=== PATIENT | female | born 1960 | race Caucasian/White ===

== ENCOUNTER 2019-07-16 22:15 | Emergency (ER) | payer OTHER, SELFPAY ==
[2019-07-16 22:16] VITALS: BP 143/96; PULSE 110; RESP 15; TEMP 36.8; O2SAT 96; BMI 30.7
--- NOTE | 2019-07-16 22:33 | EKG12_ITS ---
Test Reason : ABDOMINAL PAIN Blood Pressure : / mmHG Vent. Rate : 092 BPM Atrial Rate : 092 BPM P-R Int : 126 ms QRS Dur : 084 ms QT Int : 370 ms P-R-T Axes : 047 040 017 degrees QTc Int : 457 ms Normal sinus rhythm Normal ECG Confirmed by LUIZA CHILDRESS MD ([id number]), medical editor JAE GARCIA ([id number] on 07/22/2019 10:14:18 AM Referred By: DENNISE Confirmed By:LUIZA CHILDRESS MD
--- NOTE | 2019-07-16 22:34 | ED.VIS.GEN ---
History of Present Illness Chief Complaint: Abd Pain Informant: Patient Onset: Today Current Severity: Mild Maximum Severity: Severe Narrative: Patient presents with epigastric abdominal pain, 2 episodes tonight. The first episode occurred around 7 PM and second episode around 8 PM. Symptoms lasted 15 to 30 minutes each and spontaneous resolved. She states she has had similar episodes in the past several years, but never on a regular basis. Tonight was more persistent and stronger pain. She last ate dinner at 6 PM. She did not have anything particular greasy or fatty. She does not know of gallbladder disease. She does report having some heartburn symptoms. Past Medical History - Allergies and Home Meds Allergies/Adverse Reactions: Allergies No Known Allergies Allergy (Verified 07/16/19 22:19) Prior records reviewed: Yes Past Medical History: - - Reviewed Surgical History: appendectomy Lives: With Family Smoking Status: Never smoker Review of Systems General: Denies: Chills, Fever Eyes: Denies: Visual changes - bilaterally ENT: Denies: Bilateral ear pain Cardiovascular: Denies: Chest pain Respiratory: Reports: Dyspnea - When pain gets severe Gastrointestinal: Reports: Abdominal pain, Nausea Musculoskeletal: Denies: Back pain, Extremity Pain Skin: Denies: Rash Neurological: Denies: Headache Hematologic: Denies: Easy bruising, Easy bleeding Allergy: Denies: Uticaria Physical Exam Vital Signs/Narrative: Vital Signs Temp Pulse Resp BP Pulse Ox 07/16/19 22:16 98.2 F 110 H 15 143/96 H 96 Inital Vital Signs reviewed: Yes General: Well nourished, Well developed Head: Normocephalic ENT: Moist mucous membranes Neck: Supple Cardiovascular: Regular rate, Regular rhythm Respiratory: No distress, CTA bilaterally Abdomen: Soft, Nontender, Nondistended Back: Nontender Extremities: Nontender, No edema Skin: Normal color, No rash Neurological: Alert, Oriented x3 Psychological: Normal affect Diagnostic/Tx/Re-eval Impressions Acute Abdomen Series 07/16/19 22:45 IMPRESSION: No acute thoracic or intra-abdominal disease perceived. at 2336 Reported and signed by: River Boone MD Electronically Signed: iRver Boone MD at 23:35 EDT Tel , Service support , 07/16/19 22:45 Acute Abdomen Inc Chest [RAD] Stat Laboratory Results 07/16/19 07/16/19 22:40 22:40 WBC 14.1 H RBC 4.83 Hgb 13.9 Hct 42.4 MCV 87.8 MCH 28.8 MCHC 32.8 RDW Std Deviation 39.2 RDW Coeff of [place] 12.1 Plt Count 359 MPV 9.8 Immature Gran % (Auto) 0.500 Neut % (Auto) 88.6 H Lymph % (Auto) 5.7 L [place] % (Auto) 4.5 Eos % (Auto) 0.3 Baso % (Auto) 0.4 Absolute Neuts (auto) 12.5 H Absolute Lymphs (auto) 0.81 L Nucleated RBC % 0 Sodium 137 Potassium 4.1 Chloride 103 Carbon Dioxide 26.0 Anion Gap 8 BUN 21 H Creatinine 1.14 H Estim Creat Clear Calc 47.22 Est GFR (MDRD) Af Amer 62 Est GFR (MDRD) Non-Af 52 L BUN/Creatinine Ratio 18.4 Glucose 120 H Calcium 9.1 Total Bilirubin 0.50 Direct Bilirubin 0.23 AST 90 H ALT 77 H Alkaline Phosphatase 84 Troponin I < 0.015 Total Protein 8.1 Albumin 3.7 Globulin 4.4 H Lipase 177 - EKG Initial EKG Interpretation: Sinus Rhythm - Sinus at 92 with no acute ischemia. - Medical Decision Making Patient's pain resolved at the time she arrived to the hospital. She had no recurrent episodes of pain here. Test results are discussed with her. Her ALT and AST are elevated, but she has normal bilirubin levels. Her white count is elevated at 14. I did attempt a bedside ultrasound. Anatomy was hard to visualize but do not see anything obvious with the gallbladder. On review of her x-rays she does have quite a bit of stool noted, specifically at the splenic flexure. We will give her Prilosec to cover gastritis as well as MiraLAX to help treat her constipation. I recommended she follow-up with her primary care physician this week. She tells me she does not have a family doctor. Her [employer] is through [facility] and she would prefer to stay with the [facility] system. She will be referred to Dr. Brownlee as well as Dr. Abdul for follow-up. She is nice to return for worsening symptoms, fever, vomiting, etc. ED Disposition - Plan for ED Patient: Disposition: Home or Assisted Living Diagnosis: Epigastric pain Instructions: EPIGASTRIC PAIN (Uncertain cause) Prescriptions: Polyethylene Glycol 3350 [Miralax] 17 gm PO DAILY #20 packet Omeprazole [Prilosec] 20 mg PO DAILY #30 capsule Referrals: Jacob Jerome MD [NON-STAFF] - As soon as possible Cleveland Abdul MD [STAFF PHYSICIAN] - As Needed
[2019-07-16] MEDS: 0.9% Normal Saline 1,000 ML 150 ML IV (22:42)
--- NOTE | 2019-07-16 22:45 | RAD_ITS ---
HISTORY: abdominal pain EXAM: Abdomen acute series with chest. COMPARISON: None FINDINGS: # of images incl. paperwork: 5 Heart silhouette and mediastinal contours are normal. Lungs are clear. No effusions are present. No free air is present under the diaphragm. Dextroscoliosis to the thoracic spine. Levoscoliosis to the lumbar spine. Multilevel degenerative disc disease. This degenerative disc disease is manifested by loss of disc height, endplate sclerosis, and enthesophytes. Osteophytes are present about the acetabular joints consistent with arthritis. Bowel-gas pattern is normal. No organomegaly is present. RAD/Acute Abdomen Inc Chest IMPRESSION: No acute thoracic or intra-abdominal disease perceived. at 2336 Reported and signed by: River Boone MD Electronically Signed: River Boone MD at 23:35 EDT Tel , Service support ,
[2019-07-16 22:49] LABS: Absolute Lymphocyte Count 0.81 X10^3/uL (0.83-4.51); Absolute Neutrophil Count 12.5 X10^3/uL (2.0-7.7); Basophil# 0.05 X10^3/uL; Basophil% 0.4 % (0-1); Eosinophil# 0.04 X10^3/uL; Eosinophils% 0.3 % (0-5); Hematocrit 42.4 % (37-47); Hemoglobin 13.9 g/dL (12.0-15.0); Lymphocyte # 0.81 X10^3/ul (4.0); Lymphocyte % 5.7 % (19-41); Mean Corp Hgb Conc 32.8 g/dL (32-36); Mean Corpuscular Hgb 28.8 pg (27.0-32.0); Mean Corpuscular Volume 87.8 fL (81-99); Mean Platelet Vol. 9.8 fl (6.2-12.0); Monocyte# 0.64 X10^3/uL; Monocyte% 4.5 % (0-10); NRBC Flagged by Analyzer 0 % (0-5); Neutrophil % 88.6 % (47-70); Platelet Count 359 K/mm3 (150-450); RBC Distribution Width CV 12.1 % (11.6-14.6); RBC Distribution Width SD 39.2 fl (35.1-43.9); Red Blood Count 4.83 M/mm3 (4.2-5.4); White Blood Count 14.1 K/mm3 (4.4-11.0)
[2019-07-16 23:06] LABS: AST(SGOT) 90 U/L (15-37); Alanine Aminotransfer ALT/SGPT 77 U/L (13-56); Albumin, Serum 3.7 g/dL (3.2-5.0); Alkaline Phosphatase 84 U/L (45-117); Anion Gap 8 (5-15); BUN 21 mg/dL (7-18); BUN/Creat Ratio 18.4 RATIO (10-20); Bilirubin, Direct 0.23 mg/dL (0.00-0.30); Calcium,Total 9.1 mg/dL (8.5-10.1); Chloride 103 mmol/L (98-107); Creatinine, Serum 1.14 mg/dL (0.55-1.02); EST Glomerular Filtration Rate 52 mL/min (>60); Est Glom Filt Rate - Afr Amer 62 mL/min (>60); Estimated Creatinine Clearance 47.22 ml/min; Globulin 4.4 g/dL (2.2-4.2); Glucose 120 mg/dL (74-106); Lipase 177 U/L (73-393); Potassium 4.1 mmol/L (3.5-5.1); Protein, Total 8.1 g/dL (6.4-8.2); Sodium Level 137 mmol/L (136-145)
[2019-07-17] VITALS: BP 136/90; PULSE 88; RESP 17; O2SAT 96
== END 2019-07-17 00:02 | disposition home or self-care (01) ==
PROVIDERS: Emergency Provider Emergency Medicine
DX: R10.13 Epigastric pain (principal)
CPT/HCPCS: 74022; 80048; 80076; 83690; 84484; 85025; 93005; 96360; 99283; J7030; A4216

== ENCOUNTER → 2025-05-12 | Outpatient (CLI) | payer OTHER, SELFPAY ==
[2025-05-12 10:26] LABS: AST(SGOT) 30 U/L (<=31); Alanine Aminotransfer ALT/SGPT 30 U/L (<=34); Albumin, Serum 4.2 g/dL (3.4-4.8); Alkaline Phosphatase 68 U/L (35-104); Anion Gap 11 (5-15); BUN 15 mg/dL (4-19); BUN/Creat Ratio 14.7 RATIO (10-20); Calcium,Total 9.5 mg/dL (7.6-11.0); Carbon Dioxide 24.7 mmol/L (21.0-32.0); Chloride 106 mmol/L (98-108); Globulin 3.2 g/dL (2.2-4.2); Glucose 69 mg/dL (70-99); Potassium 4.1 mmol/L (3.3-5.1)
== END | disposition home or self-care (01) ==
DX: R53.83 Other fatigue (principal)
CPT/HCPCS: 36415; 80053